=== PATIENT | male | born 2000 | race Caucasian/White ===

== ENCOUNTER 2019-06-08 10:56 | Outpatient (CLI) | payer OTHER ==
[2019-06-08 11:31] LABS: #Basophils 0.2 thou/uL (0.0-0.2); #Eosinphils 0.6 thou/uL (0.0-0.7); #Lymphocytes 1.9 thou/uL (1.20-3.40); #Monocytes 0.8 thou/uL (0.11-0.59); #Neutrophils 5.4 thou/uL (1.40-6.50); %Basophils 1.9 % (0.0-1.0); %Eosinophils 6.5 % (0.0-10.0); %Lymphocytes 21.3 % (28.0-48.0); %Monocytes 9.5 % (0.0-4.0); %Neutrophils 60.8 % (31.0-61.0); Mean Corpuscular HGB CONC 34.3 g/dL (32.0-36.0); Mean Corpuscular Hemoglobin 29.7 pg (25.0-35.0); Mean Corpuscular Volume 86.7 fL (78.0-98.0); Mean Platelet Volume 7.1 fL (7.4-10.4); Platelet Count 288 thou/uL (130-400); RBC Distribution Width 11.2 % (11.5-14.5); Red Blood Cell (RBC) Count 5.06 mill/uL (4.00-5.20); White Blood Cell (WBC) Count 8.8 thou/uL (4.8-10.8)
--- NOTE | 2019-06-08 11:37 | RAD ---
EXAM: 3 views of the left foot HISTORY: Great toe pain and swelling COMPARISON: None FINDINGS: 3 views of the left foot shows no evidence of acute fracture or dislocation. No soft tissue swelling is seen. No degenerative changes are present. IMPRESSION: No evidence of acute osseous abnormality.
== END 2019-06-08 10:57 | disposition home or self-care (01) ==
LOC: SCSRAD 10:56
PROVIDERS: ATTEND Pediatrics
DX: M79.675 Pain in left toe(s) (principal); G89.29 Other chronic pain
CPT/HCPCS: 36415; 85025; 85652